=== PATIENT | male | born 1985 | race Caucasian/White ===

== ENCOUNTER 2017-11-14 13:36 | Emergency (ER) | payer MEDICAID ==
[~2017-11-14] VITALS: Ht 170.2 cm; Wt 74.8 kg
--- NOTE | 2017-11-14 13:45 | NUR ---
Patient to [facility] for evaluation. Side rails up. Report given to RN.
--- NOTE | 2017-11-14 13:47 | NUR ---
Tawanna Damico DEBURRING MACHINE OPERATOR at bedside examining pt.
[2017-11-14 14:16] VITALS: BP_SYST 142
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
[2017-11-14] MEDS: ONDANSETRON 4 MG ODT TAB PO ONE (15:46)
[2017-11-14] MEDS: ACETAMINOPHEN 500 MG TABLET PO ONE (15:49)
--- NOTE | 2017-11-14 15:50 | NUR ---
Medication administered. Pt tolerated well. No adverse reactions noted.
[2017-11-14] MEDS: BACITRACIN 1 GM OINT TP ONE (15:56)
[2017-11-14] MEDS: DIPH-TET-PERTUS Vaccine 0.5 ML VIAL (ADACEL) I.M. ONE (15:56)
[2017-11-14 16:20] VITALS: BP_SYST 140
--- NOTE | 2017-11-14 16:20 | NUR ---
Patient given written and verbal discharge instructions and verbalizes understanding. JESUS Stacy COOLING TOWER TECHNICIAN discussed with patient the results and treatment provided. Patient in stable condition. ID arm band removed.Rx of Zofran, Tylenol, Bacitracin given. Patient educated on pain management and to follow up with PMD. Pain Scale 0. Opportunity for questions provided and answered.
== END 2017-11-14 16:20 | disposition home or self-care (01) ==
LOC: SED 13:36
DX: S01.112A Laceration without foreign body of left eyelid and periocular area, initial encounter (principal); F07.81 Postconcussional syndrome; R03.0 Elevated blood-pressure reading, without diagnosis of hypertension; W19.XXXA Unspecified fall, initial encounter; Y93.89 Activity, other specified; Y92.091 Bathroom in other non-institutional residence as the place of occurrence of the external cause; Y99.8 Other external cause status
CPT/HCPCS: 90471; 90715; 99284; Q0162